=== PATIENT | male | born 1935 | race African-American/Black ===

== ENCOUNTER 2018-10-13 13:29 | Inpatient (IN) ==
[2018-10-13] MEDS ORDERED: PANTOPRAZOLE 40 MG VIAL IV STA (13:50)
[2018-10-13] MEDS ORDERED: SODIUM CHLORIDE 0.9% 500 ML IV STA (13:50)
[2018-10-13 14:12] LABS: Basophils % 0.1 % (0.0-0.8); Eosinophils % 0.1 % (0.00-10.9); Immature Granulocytes % 1.3 %; Immature Granulocytes Absolute 0.23 #; Lymphocytes # 1.9 10*3/uL (1.4-4.0); Lymphocytes % 10.4 % (21.2-54.2); Mean Corpuscular HGB Conc 29.5 GM/DL (32-36); Mean Corpuscular Hemoglobin 27 PG (27-34); Mean Corpuscular Volume 92.3 FL (87-102); Mean Platelet Volume 9.4 FL (9.6-12.0); Monocytes # 1.5 10*3/uL (0.11-0.8); Monocytes % 8.2 % (1.7-12.7); NRBC # 0.02 10*3/uL; Neutrophils # 14.2 10*3/uL (1.4-7.4); Neutrophils % 79.9 % (38.7-73.9); Platelet Count 356 T/CUMM (130-400); Red Blood Count 1.69 MC/CUMM (3.8-5.5); Red Cell Distribution Width 19.6 % (9.3-17.3); White Blood Count 17.7 T/CUMM (4-12)
[2018-10-13 14:14] LABS: Hematocrit 15.6 VOL% (42.0-52.0); Hemoglobin 4.6 GM/DL (14.0-18.0)
[2018-10-13] MEDS ORDERED: SODIUM CHLORIDE 0.9% 1,000 ML IV PRN (14:15)
[2018-10-13 14:21] LABS: PT Patient Result 10.9 SECS; Partial Thromboplastin Time 21.9 SECS (0-40)
[2018-10-13 14:30] LABS: Alanine Aminotransferase 24 U/L (16-61); Albumin 2.2 G/DL (3.4-5.0); Alkaline Phosphatase 46 U/L (45-117); Aspartate Amino Transferase 10 U/L (0-37); Bilirubin,Total < 0.39 MG/DL (0.2-1.0); Blood Urea Nitrogen 18 MG/DL (7-18); Calcium 7.1 MG/DL (8.5-10.1); Glucose 177 MG/DL (74-106); Osmolality,Calculated 286.3 MOS/KG (273-304); Potassium 3.7 MMOL/L (3.5-5.1); Sodium 141 MMOL/L (136-145); Total Protein 5.1 G/DL (6.4-8.3)
[2018-10-13] MEDS ORDERED: ONDANSETRON 4 MG/2 ML VIAL IV PRN (14:53)
[2018-10-13] MEDS ORDERED: HYDROCORTISONE 100 MG VIAL IV STA (14:58)
[2018-10-13] MEDS ORDERED: DEXTROSE 50% 25 GM/50 ML SYRINGE IV PRN (15:08)
[2018-10-13] MEDS ORDERED: hydrALAZINE 20 MG/1 ML VIAL IV PRN (15:08)
[2018-10-13] MEDS ORDERED: GLUCAGON 1 MG VIAL IM PRN (15:08)
[2018-10-13] MEDS: SODIUM CHLORIDE 0.9% 1,000 ML IV SCH (16:38)
[2018-10-13] MEDS: INSULIN REGULAR 100 UNIT/ML SUBCUT SCH (17:30)
[2018-10-13 19:45] LABS: Apearance,Urine Slightly Hazy (Clear); Bacteria,Urine Occasional /HPF (Few); Bilirubin,Urine Negative (Negative); Blood, Urine Negative (Negative); Glucose,Urine (UA) Negative (Negative); Hyaline Casts,Urine 4 /LPF (0-3); Ketones,Urine Negative (Negative); Mucus,Urine Occasional /LPF (Occasional); Nitrite,Urine Negative (Negative); Protein,Urine Negative; RBC,Urine 1 /HPF (0-4); Squamous Epithelial Cell,Urine Occasional /HPF (0-10); Urine Color Yellow (Yellow); Urine Specific Gravity 1.014 (1.001-1.035); Urine Urobilinogen < 2.0 EU/DL (0.2-1.0); WBC,Urine 10 /HPF (0-6)
[2018-10-13] MEDS: PANTOPRAZOLE 40 MG VIAL IV SCH (21:56)
[2018-10-14] MEDS: HYDROCORTISONE 100 MG VIAL IV SCH ×4 (01:13→23:31)
[2018-10-14] MEDS: SODIUM CHLORIDE 0.9% 1,000 ML IV SCH ×5 (01:17→23:48)
[2018-10-14] MEDS: INSULIN REGULAR 100 UNIT/ML SUBCUT SCH ×5 (01:17→23:32)
[2018-10-14 02:05] LABS: Hematocrit 26.2 VOL% (42.0-52.0); Hemoglobin 8.5 GM/DL (14.0-18.0)
[2018-10-14 02:20] LABS: Calcium 6.5 MG/DL (8.5-10.1); Potassium 4.5 MMOL/L (3.5-5.1)
[2018-10-14 05:55] LABS: Hematocrit 28.7 VOL% (42.0-52.0); Hemoglobin 9.2 GM/DL (14.0-18.0)
[2018-10-14] MEDS: PANTOPRAZOLE 40 MG VIAL IV SCH ×2 (08:31→20:32)
[2018-10-14 12:50] LABS: Hematocrit 25.5 VOL% (42.0-52.0); Hemoglobin 8.1 GM/DL (14.0-18.0)
[2018-10-14 19:42] LABS: Hematocrit 21.7 VOL% (42.0-52.0); Hemoglobin 6.9 GM/DL (14.0-18.0)
[2018-10-15 00:55] LABS: Hematocrit 19.6 VOL% (42.0-52.0)
[2018-10-15 00:59] LABS: Hemoglobin 6.1 GM/DL (14.0-18.0)
[2018-10-15 01:05] LABS: Calcium 6.2 MG/DL (8.5-10.1); Osmolality,Calculated 288.7 MOS/KG (273-304); Potassium 3.9 MMOL/L (3.5-5.1)
[2018-10-15] MEDS ORDERED: SODIUM CHLORIDE 0.9% 1,000 ML IV PRN ×2 (01:05→02:52)
[2018-10-15] MEDS: INSULIN REGULAR 100 UNIT/ML SUBCUT SCH ×3 (05:40→17:51)
[2018-10-15] MEDS: HYDROCORTISONE 100 MG VIAL IV SCH ×2 (06:27→15:08)
[2018-10-15] MEDS ORDERED: DIAZEPAM 5 MG TABLET PO ONE (08:00)
[2018-10-15] MEDS: PANTOPRAZOLE 40 MG VIAL IV SCH ×2 (08:02→20:25)
[2018-10-15] MEDS ORDERED: CALCIUM GLUCONATE 1,000 MG in SODIUM CHLORIDE 0.9% 100 ML IV ONE (09:00)
[2018-10-15 10:31] LABS: Basophils % 0.1 % (0.0-0.8); Immature Granulocytes % 0.6 %; Immature Granulocytes Absolute 0.08 #; Lymphocytes % 8.3 % (21.2-54.2); Mean Corpuscular Hemoglobin 28 PG (27-34); Mean Corpuscular Volume 87.4 FL (87-102); Mean Platelet Volume 9.4 FL (9.6-12.0); Monocytes # 0.7 10*3/uL (0.11-0.8); NRBC # 0.02 10*3/uL; Neutrophils # 10.5 10*3/uL (1.4-7.4); Red Cell Distribution Width 17.2 % (9.3-17.3); White Blood Count 12.4 T/CUMM (4-12)
[2018-10-15 10:38] LABS: Platelet Count 205 T/CUMM (130-400); Red Blood Count 2.86 MC/CUMM (3.8-5.5)
[2018-10-15] MEDS ORDERED: DIAZEPAM 5 MG TABLET ONE (14:57)
[2018-10-15 16:24] LABS: Hematocrit 24.6 VOL% (42.0-52.0); Hemoglobin 7.9 GM/DL (14.0-18.0)
[2018-10-15] MEDS: SODIUM CHLORIDE 0.9% 1,000 ML IV SCH ×2 (19:15→20:34)
[2018-10-16] MEDS: HYDROCORTISONE 100 MG VIAL IV SCH ×4 (00:12→23:15)
[2018-10-16] MEDS: INSULIN REGULAR 100 UNIT/ML SUBCUT SCH ×5 (00:12→23:15)
[2018-10-16] MEDS: SODIUM CHLORIDE 0.9% 1,000 ML IV SCH ×3 (03:12→22:43)
[2018-10-16 08:58] LABS: Hematocrit 23.2 VOL% (42.0-52.0); Hemoglobin 7.6 GM/DL (14.0-18.0)
[2018-10-16] MEDS: PANTOPRAZOLE 40 MG VIAL IV SCH ×2 (09:23→21:40)
[2018-10-16] MEDS ORDERED: LIDOCAINE 1% 5 ML VIAL ONE (10:09)
[2018-10-16] MEDS ORDERED: PROPOFOL 200 MG/20 ML VIAL IV ONE (10:09)
[2018-10-16] MEDS ORDERED: BISACODYL 5 MG TABLET PO ONE (12:00)
[2018-10-16] MEDS ORDERED: POLYETHYLENE GLYCOL POWDER 255 GM BOTTLE PO ONE (18:00)
[2018-10-16 22:03] LABS: Hemoglobin 9.5 GM/DL (14.0-18.0)
[2018-10-17] MEDS: SODIUM CHLORIDE 0.9% 1,000 ML IV SCH ×4 (04:10→20:59)
[2018-10-17 05:37] LABS: Basophils % 0.1 % (0.0-0.8); Eosinophils % 0.1 % (0.00-10.9); Hematocrit 28.8 VOL% (42.0-52.0); Hemoglobin 9.4 GM/DL (14.0-18.0); Immature Granulocytes % 0.4 %; Immature Granulocytes Absolute 0.04 #; Lymphocytes # 0.6 10*3/uL (1.4-4.0); Lymphocytes % 6.8 % (21.2-54.2); Mean Corpuscular HGB Conc 32.6 GM/DL (32-36); Mean Corpuscular Hemoglobin 29 PG (27-34); Mean Corpuscular Volume 87.8 FL (87-102); Mean Platelet Volume 9.1 FL (9.6-12.0); Monocytes # 0.5 10*3/uL (0.11-0.8); Monocytes % 5.6 % (1.7-12.7); Neutrophils # 8.2 10*3/uL (1.4-7.4); Platelet Count 197 T/CUMM (130-400); Red Blood Count 3.28 MC/CUMM (3.8-5.5); Red Cell Distribution Width 18.2 % (9.3-17.3); White Blood Count 9.4 T/CUMM (4-12)
[2018-10-17 06:00] LABS: Calcium 6.4 MG/DL (8.5-10.1); Osmolality,Calculated 279.1 MOS/KG (273-304)
[2018-10-17] MEDS: HYDROCORTISONE 100 MG VIAL IV SCH ×3 (06:23→23:40)
[2018-10-17] MEDS: INSULIN REGULAR 100 UNIT/ML SUBCUT SCH ×3 (06:23→18:15)
[2018-10-17] MEDS ORDERED: POTASSIUM CHLORIDE RIDER 10 MEQ in PREMIX 1 EACH IV ONE (07:08)
[2018-10-17] MEDS ORDERED: POTASSIUM CHLORIDE RIDER 100 ML IV ONE (07:11)
[2018-10-17] MEDS ORDERED: MAGNESIUM SULF RIDER 2 GM in PREMIX 1 EACH IV ONE (08:16)
[2018-10-17] MEDS: PANTOPRAZOLE 40 MG VIAL IV SCH ×2 (08:46→21:00)
[2018-10-17] MEDS: POTASSIUM CHLORIDE RIDER 10 MEQ in PREMIX 1 EACH IV SCH ×3 (08:46→11:58)
[2018-10-17] MEDS ORDERED: PROPOFOL 200 MG/20 ML VIAL IV ONE (10:00)
[2018-10-17] MEDS ORDERED: LIDOCAINE 2% 5 ML VIAL ONE (10:00)
[2018-10-17] MEDS ORDERED: MAGNESIUM CITRATE 300 ML BOTTLE PO ONE (11:24)
[2018-10-18] MEDS: INSULIN REGULAR 100 UNIT/ML SUBCUT SCH ×3 (00:29→11:17)
[2018-10-18] MEDS: SODIUM CHLORIDE 0.9% 1,000 ML IV SCH (04:40)
[2018-10-18 05:22] LABS: Basophils % 0.1 % (0.0-0.8); Eosinophils % 0.3 % (0.00-10.9); Hematocrit 29.8 VOL% (42.0-52.0); Hemoglobin 9.5 GM/DL (14.0-18.0); Immature Granulocytes % 0.3 %; Immature Granulocytes Absolute 0.03 #; Lymphocytes # 0.7 10*3/uL (1.4-4.0); Lymphocytes % 7.8 % (21.2-54.2); Mean Corpuscular HGB Conc 31.9 GM/DL (32-36); Mean Corpuscular Hemoglobin 28 PG (27-34); Mean Corpuscular Volume 87.6 FL (87-102); Mean Platelet Volume 9.2 FL (9.6-12.0); Monocytes # 0.6 10*3/uL (0.11-0.8); Monocytes % 6.2 % (1.7-12.7); Neutrophils # 7.7 10*3/uL (1.4-7.4); Neutrophils % 85.3 % (38.7-73.9); Platelet Count 235 T/CUMM (130-400); Red Cell Distribution Width 18.3 % (9.3-17.3)
[2018-10-18 05:33] LABS: Calcium 6.4 MG/DL (8.5-10.1); Osmolality,Calculated 277.3 MOS/KG (273-304); Potassium 3.1 MMOL/L (3.5-5.1)
[2018-10-18] MEDS: HYDROCORTISONE 100 MG VIAL IV SCH ×2 (06:05→15:26)
[2018-10-18] MEDS ORDERED: POTASSIUM CHLORIDE 20 MEQ TABLET PO PRN (07:42)
[2018-10-18] MEDS: PANTOPRAZOLE 40 MG VIAL IV SCH (09:17)
[2018-10-18] MEDS: POTASSIUM CHLORIDE RIDER 10 MEQ in PREMIX 1 EACH IV PRN ×3 (09:18→15:28)
[2018-10-18 16:13] VITALS: BP 130/71
== END 2018-10-18 17:05 | disposition home or self-care (01) | DRG 357 ==
LOC: EDUNIT# → EDBD → N.ED 13:29 → SUATTDRO 14:41 → N.EDINP 14:41 → N.CC 15:25 → N.4E 10-17 16:35
PROVIDERS: ADMIT Hospitalist; ATTEND Internal Medicine